=== PATIENT | male | born 1985 | race Caucasian/White ===

== ENCOUNTER 2017-11-09 02:15 | Emergency (ER) | payer BC, OTHER ==
[2017-11-09] MEDS: LIDOCAINE/MYLANTA 40 ML BTL PO (02:42)
[2017-11-09] MEDS: ONDANSETRON (ODT) 4 MG TAB ODT (02:42)
== END 2017-11-09 03:02 | disposition home or self-care (01) ==
LOC: FTE 02:15
DX: R11.2 Nausea with vomiting, unspecified (principal)
CPT/HCPCS: 99283